=== PATIENT | male | born 1980 | race Hispanic/Latino ===

== ENCOUNTER 2017-08-25 15:39 | Inpatient (IN) | payer MEDICARE, OTHER ==
[~2017-08-25] VITALS: Ht 167.6 cm; Wt 65.1 kg
[2017-08-25] MEDS ORDERED: SODIUM CHLORIDE 0.9% 1000ML 1,000 ML IV ONE (16:32)
[2017-08-25 16:38] LABS: BASOPHILS % (AUTO) 1.2 % (0.0-5.0); EOSINOPHILS % (AUTO) 1.9 % (0.0-8.0); LYMPHOCYTES % (AUTO) 22.8 % (21.0-51.0); MEAN CORPUSCULAR HEMOGLOBIN 32.1 pg (27.0-33.0); MEAN CORPUSCULAR HGB CONC 34.8 g/dL (32.0-36.0); MEAN CORPUSCULAR VOLUME 92.4 fL (79-99); MONOCYTES % (AUTO) 11.4 % (3.0-13.0); NEUTROPHILS % (AUTO) 62.7 % (40.0-77.0); NUCLEATED RED BLOOD CELLS 0.1 % (0.0-0.19); PLATELET COUNT (AUTO) 241 K/uL (130-400); RED CELL DISTRIBUTION WIDTH 13.2 % (11.0-15.5)
[2017-08-25 16:57] LABS: CREATININE 0.8 mg/dL (0.5-1.5); POTASSIUM 3.7 mmol/L (3.5-5.1)
[2017-08-25 17:02] LABS: ALBUMIN 1.7 g/dL (3.5-5.0); BILIRUBIN,TOTAL 0.6 mg/dL (0.2-1.0); TOTAL PROTEIN, SERUM 8.8 g/dL (6.0-8.3)
[2017-08-25] MEDS ORDERED: IPRATROPIUM/ALBUTEROL SULFATE 3 ML SOLUTION IH ONE ×2 (17:40→21:48)
[2017-08-25 18:01] LABS: ABG BASE EXCESS -1.6 mmol/L (-2.0-3.0); ABG HCO3 22.2 mmol/L (21.0-28.0); ABG OXYGEN SATURATION 93.6 % (95.0-99.0); ABG PCO2 35 mmHg (35-48)
[2017-08-25] MEDS ORDERED: PREDNISONE 20 MG TABLET ONE (19:12)
[2017-08-25] MEDS ORDERED: SULFAMETHOX-TMP DS 800/160 TAB ONE (19:12)
[2017-08-25] MEDS ORDERED: CEFTRIAXONE SODIUM 1 GM ONE (19:55)
[2017-08-25] MEDS ORDERED: AZITHROMYCIN 250 MG TABLET PO ONE (19:56)
[2017-08-26] MEDS ORDERED: IPRATROPIUM/ALBUTEROL SULFATE 3 ML SOLUTION IH ONE (05:49)
[2017-08-26 06:02] LABS: HEMATOCRIT 34.2 % (42-54); LYMPHOCYTES % (AUTO) 29.9 % (21.0-51.0); MEAN CORPUSCULAR HEMOGLOBIN 31.9 pg (27.0-33.0); MEAN CORPUSCULAR HGB CONC 34.6 g/dL (32.0-36.0); MEAN CORPUSCULAR VOLUME 92.3 fL (79-99); MONOCYTES % (AUTO) 13.4 % (3.0-13.0); NEUTROPHILS % (AUTO) 55.7 % (40.0-77.0); PLATELET COUNT (AUTO) 205 K/uL (130-400); RED BLOOD CELL COUNT(AUTO) 3.71 MIL/uL (4.50-6.20); RED CELL DISTRIBUTION WIDTH 13.1 % (11.0-15.5)
[2017-08-26 06:18] LABS: INR 1.01 (0.85-1.15); PARTIAL THROMBOPLASTIN TIME 27.6 SEC (26.3-35.5); PROTHROMBIN TIME 10.6 SEC (9.6-11.6)
[2017-08-26 06:24] LABS: CREATININE 0.5 mg/dL (0.5-1.5); POTASSIUM 3.9 mmol/L (3.5-5.1)
[2017-08-26 06:31] LABS: ALBUMIN 1.5 g/dL (3.5-5.0); BILIRUBIN,TOTAL 0.3 mg/dL (0.2-1.0)
[2017-08-26] MEDS ORDERED: METHYLPREDNISOLONE SOD SUCC 40MG/ML 1ML ONE (08:16)
[2017-08-26] MEDS: METHYLPREDNISOLONE SOD SUCC 40MG/ML 1ML IVP SCH ×2 (09:45→22:44)
[2017-08-26] MEDS ORDERED: COMPOUND IV MISC 1 EACH IVSOLN MISC PRN (09:45)
[2017-08-26] MEDS ORDERED: WATER IV SCH (10:00)
[2017-08-26] MEDS ORDERED: DEXTROSE 5% IV SCH (10:00)
[2017-08-26] MEDS ORDERED: BACTRIM IV SCH (10:00)
[2017-08-26] MEDS: IPRATROPIUM/ALBUTEROL SULFATE 3 ML SOLUTION IH SCH ×2 (13:32→21:40)
[2017-08-26 13:40] VITALS: BP 107/62
[2017-08-26 16:58] VITALS: BP 97/55
[2017-08-26] MEDS: SODIUM CHLORIDE 0.9% IV SCH (18:26)
[2017-08-26] MEDS: BACTRIM IV SCH (18:26)
[2017-08-26 20:00] VITALS: BP 100/65
[2017-08-26] MEDS: FLU VACC QS2017-18 36MOS UP/PF 60 MCG/0.5 ML ML IM SCH (20:45)
[2017-08-26 23:25] VITALS: BP 100/60
[2017-08-27 03:15] VITALS: BP 101/60
[2017-08-27] MEDS: SODIUM CHLORIDE 0.9% IV SCH ×3 (03:25→19:01)
[2017-08-27] MEDS: BACTRIM IV SCH ×3 (03:25→19:01)
[2017-08-27 04:10] LABS: HEMATOCRIT 32.6 % (42-54); MEAN CORPUSCULAR HEMOGLOBIN 32.3 pg (27.0-33.0); MEAN CORPUSCULAR HGB CONC 35.1 g/dL (32.0-36.0); MEAN CORPUSCULAR VOLUME 92.2 fL (79-99); PLATELET COUNT (AUTO) 221 K/uL (130-400); RED BLOOD CELL COUNT(AUTO) 3.54 MIL/uL (4.50-6.20); WHITE BLOOD COUNT (AUTO) 8.5 K/uL (4.8-10.8)
[2017-08-27 04:24] LABS: ALBUMIN 1.5 g/dL (3.5-5.0); BILIRUBIN,TOTAL 0.3 mg/dL (0.2-1.0); CREATININE 0.7 mg/dL (0.5-1.5); MAGNESIUM 1.9 mg/dL (1.80-2.40); POTASSIUM 3.8 mmol/L (3.5-5.1); TOTAL PROTEIN, SERUM 7.5 g/dL (6.0-8.3)
[2017-08-27] MEDS: IPRATROPIUM/ALBUTEROL SULFATE 3 ML SOLUTION IH SCH ×4 (05:53→23:00)
[2017-08-27 07:53] VITALS: BP 81/42
[2017-08-27 09:15] LABS: RAPID PLASMA REAGIN WEAK REACTV (NONREACTIVE); RAPID PLASMA REAGIN TITER REACTIVE 1:1 (NONREACTIVE)
[2017-08-27] MEDS: METHYLPREDNISOLONE SOD SUCC 40MG/ML 1ML IVP SCH ×2 (10:32→21:53)
[2017-08-27 11:20] VITALS: BP 105/65
[2017-08-27] MEDS ORDERED: PHARMACY COMMUNICATION MISC SCH (13:15)
[2017-08-27] MEDS ORDERED: AZITHROMYCIN 200 MG/ 5 ML BTL PO SCH (13:30)
[2017-08-27 15:59] VITALS: BP 105/63
[2017-08-27 19:15] VITALS: BP 107/58
[2017-08-27 23:10] VITALS: BP 113/74
[2017-08-28] MEDS: BACTRIM IV SCH ×3 (02:05→20:38)
[2017-08-28] MEDS: SODIUM CHLORIDE 0.9% IV SCH ×3 (02:05→20:38)
[2017-08-28 03:10] VITALS: BP 108/62
[2017-08-28] MEDS: IPRATROPIUM/ALBUTEROL SULFATE 3 ML SOLUTION IH SCH ×3 (06:27→21:28)
[2017-08-28 08:57] VITALS: BP 101/61
[2017-08-28] MEDS: METHYLPREDNISOLONE SOD SUCC 40MG/ML 1ML IVP SCH ×2 (09:56→22:16)
[2017-08-28 11:39] VITALS: BP 134/81
[2017-08-28 16:11] VITALS: BP 107/69
[2017-08-28 19:00] VITALS: BP 108/58
[2017-08-28 23:00] VITALS: BP 104/70
[2017-08-29] MEDS: BACTRIM IV SCH ×3 (02:52→20:32)
[2017-08-29] MEDS: SODIUM CHLORIDE 0.9% IV SCH ×3 (02:52→20:32)
[2017-08-29 03:00] VITALS: BP 109/69
[2017-08-29 06:32] LABS: HEMATOCRIT 32.8 % (42-54); MEAN CORPUSCULAR HEMOGLOBIN 32.1 pg (27.0-33.0); MEAN CORPUSCULAR HGB CONC 34.6 g/dL (32.0-36.0); MEAN CORPUSCULAR VOLUME 92.8 fL (79-99); NUCLEATED RED BLOOD CELLS 0.1 % (0.0-0.19); PLATELET COUNT (AUTO) 239 K/uL (130-400); RED BLOOD CELL COUNT(AUTO) 3.53 MIL/uL (4.50-6.20); RED CELL DISTRIBUTION WIDTH 13.2 % (11.0-15.5); WHITE BLOOD COUNT (AUTO) 5.1 K/uL (4.8-10.8)
[2017-08-29 06:44] LABS: CREATININE 0.6 mg/dL (0.5-1.5); POTASSIUM 4.5 mmol/L (3.5-5.1)
[2017-08-29] MEDS: IPRATROPIUM/ALBUTEROL SULFATE 3 ML SOLUTION IH SCH ×3 (06:45→21:45)
[2017-08-29 07:00] VITALS: BP 99/61
[2017-08-29 07:24] LABS: LYMPHOCYTES % (MANUAL) 6 % (22-44); MAN.DIFF COMMENT-IMPRESSION MANUAL DIFFERENTIAL; MONOCYTES % (MANUAL) 6 % (2-9); PLATELET MORPHOLOGY COMMENT ADEQUATE; SEGMENTED NEUTROPHILS % 88 % (40-70)
[2017-08-29] MEDS: METHYLPREDNISOLONE SOD SUCC 40MG/ML 1ML IVP SCH ×2 (09:30→20:30)
[2017-08-29 11:00] VITALS: BP 106/68
[2017-08-29] MEDS: FLU VACC QS2017-18 36MOS UP/PF 60 MCG/0.5 ML ML IM SCH (12:08)
[2017-08-29 15:40] VITALS: BP 93/59
[2017-08-29 19:00] VITALS: BP 102/73
[2017-08-29 23:00] VITALS: BP 105/67
[2017-08-30] MEDS: BACTRIM IV SCH ×3 (00:25→23:07)
[2017-08-30] MEDS: SODIUM CHLORIDE 0.9% IV SCH ×3 (00:25→23:07)
[2017-08-30 03:00] VITALS: BP 90/57
[2017-08-30] MEDS: IPRATROPIUM/ALBUTEROL SULFATE 3 ML SOLUTION IH SCH ×3 (07:21→21:28)
[2017-08-30 08:00] VITALS: BP 107/61
[2017-08-30] MEDS: METHYLPREDNISOLONE SOD SUCC 40MG/ML 1ML IVP SCH ×2 (08:42→23:08)
[2017-08-30 12:19] VITALS: BP 103/64
[2017-08-30 16:00] VITALS: BP 108/64
[2017-08-30 19:59] VITALS: BP 122/74
[2017-08-30 23:39] VITALS: BP 109/68
[2017-08-31 04:21] VITALS: BP 107/65
[2017-08-31 04:41] LABS: CREATININE 0.6 mg/dL (0.5-1.5); POTASSIUM 3.7 mmol/L (3.5-5.1)
[2017-08-31 04:47] LABS: HEMATOCRIT 32.1 % (42-54); MEAN CORPUSCULAR HEMOGLOBIN 32.9 pg (27.0-33.0); MEAN CORPUSCULAR HGB CONC 35.2 g/dL (32.0-36.0); MEAN CORPUSCULAR VOLUME 93.2 fL (79-99); PLATELET COUNT (AUTO) 323 K/uL (130-400); RED BLOOD CELL COUNT(AUTO) 3.44 MIL/uL (4.50-6.20); RED CELL DISTRIBUTION WIDTH 13.3 % (11.0-15.5); WHITE BLOOD COUNT (AUTO) 6.7 K/uL (4.8-10.8)
[2017-08-31 05:20] LABS: BAND NEUTROPHILS % (MANUAL) 13 % (0-2); LYMPHOCYTES % (MANUAL) 12 % (22-44); MAN.DIFF COMMENT-IMPRESSION MANUAL DIFFERENTIAL; MONOCYTES % (MANUAL) 7 % (2-9); PLATELET MORPHOLOGY COMMENT ADEQUATE; SEGMENTED NEUTROPHILS % 68 % (40-70)
[2017-08-31] MEDS: IPRATROPIUM/ALBUTEROL SULFATE 3 ML SOLUTION IH SCH ×3 (07:28→22:07)
[2017-08-31 08:00] VITALS: BP 118/76
[2017-08-31] MEDS ORDERED: BACTRIM IV SCH (08:15)
[2017-08-31] MEDS ORDERED: WATER IV SCH (08:15)
[2017-08-31] MEDS ORDERED: DEXTROSE 5% IV SCH (08:15)
[2017-08-31 11:42] VITALS: BP 104/72
[2017-08-31] MEDS: METHYLPREDNISOLONE SOD SUCC 40MG/ML 1ML IVP SCH ×2 (11:56→22:53)
[2017-08-31] MEDS: BACTRIM IV SCH ×2 (14:05→22:54)
[2017-08-31] MEDS: WATER IV SCH ×2 (14:05→22:54)
[2017-08-31] MEDS: DEXTROSE 5% IV SCH ×2 (14:05→22:54)
[2017-08-31 16:00] VITALS: BP 124/75
[2017-08-31 19:15] VITALS: BP 105/75
[2017-08-31 23:30] VITALS: BP 112/76
[2017-09-01 03:30] VITALS: BP 119/78
[2017-09-01 07:00] VITALS: BP 120/73
[2017-09-01] MEDS: IPRATROPIUM/ALBUTEROL SULFATE 3 ML SOLUTION IH SCH ×3 (07:06→21:47)
[2017-09-01] MEDS: WATER IV SCH ×3 (07:07→22:34)
[2017-09-01] MEDS: DEXTROSE 5% IV SCH ×3 (07:07→22:34)
[2017-09-01] MEDS: BACTRIM IV SCH ×3 (07:07→22:34)
[2017-09-01] MEDS: METHYLPREDNISOLONE SOD SUCC 40MG/ML 1ML IVP SCH ×2 (09:32→22:34)
[2017-09-01 11:07] VITALS: BP 120/75
[2017-09-01 15:00] VITALS: BP 119/75
[2017-09-01 19:23] VITALS: BP 126/89
[2017-09-01 23:25] VITALS: BP 124/78
[2017-09-02 03:20] VITALS: BP 107/60
[2017-09-02 05:01] LABS: HEMATOCRIT 33.6 % (42-54); MEAN CORPUSCULAR HEMOGLOBIN 31.1 pg (27.0-33.0); MEAN CORPUSCULAR HGB CONC 33.6 g/dL (32.0-36.0); MEAN CORPUSCULAR VOLUME 92.7 fL (79-99); NUCLEATED RED BLOOD CELLS 0.1 % (0.0-0.19); PLATELET COUNT (AUTO) 302 K/uL (130-400); RED BLOOD CELL COUNT(AUTO) 3.63 MIL/uL (4.50-6.20); WHITE BLOOD COUNT (AUTO) 8.2 K/uL (4.8-10.8)
[2017-09-02 05:16] LABS: ALBUMIN 1.9 g/dL (3.5-5.0); BILIRUBIN,TOTAL 0.3 mg/dL (0.2-1.0); CREATININE 0.7 mg/dL (0.5-1.5); MAGNESIUM 1.5 mg/dL (1.80-2.40); POTASSIUM 4.1 mmol/L (3.5-5.1); TOTAL PROTEIN, SERUM 7.3 g/dL (6.0-8.3)
[2017-09-02] MEDS: IPRATROPIUM/ALBUTEROL SULFATE 3 ML SOLUTION IH SCH ×2 (06:29→13:25)
[2017-09-02 08:00] VITALS: BP 123/76
[2017-09-02] MEDS: METHYLPREDNISOLONE SOD SUCC 40MG/ML 1ML IVP SCH (10:09)
[2017-09-02] MEDS: DEXTROSE 5% IV SCH ×2 (10:09→18:28)
[2017-09-02] MEDS: BACTRIM IV SCH ×2 (10:09→18:28)
[2017-09-02] MEDS: WATER IV SCH ×2 (10:09→18:28)
[2017-09-02] MEDS: ACETAMINOPHEN 325 MG TAB PO PRN ×2 (11:47→19:23)
[2017-09-02 12:00] VITALS: BP 126/73
[2017-09-02 16:00] VITALS: BP 115/70
== END 2017-09-02 20:35 | DRG 974 ==
LOC: EDH 15:39 → EDHIP 19:13 → 3CH 08-26 13:50
PROVIDERS: ADMIT Internal Medicine Infectious Disease; ATTEND Internal Medicine Infectious Disease
DX: B20 Human immunodeficiency virus [HIV] disease (principal); B59 Pneumocystosis; J96.01 Acute respiratory failure with hypoxia; E46 Unspecified protein-calorie malnutrition; L40.9 Psoriasis, unspecified; Z91.19 Patient's noncompliance with other medical treatment and regimen; Z68.23 Body mass index [BMI] 23.0-23.9, adult; Z88.0 Allergy status to penicillin
CPT/HCPCS: 36415; 36600; 71010; 71046; 71250; 80048; 80053; 82803; 83735; 85025; 85027; 85610; 85730; 86360; 86480; 86592; 86780; 86812; 87040; 87071; 87116; 87206; 87536; 87633; 87900; 87901; 93005; 94640; 94664; 99291; A4218; J0696; J2920; J3490; J7030; J7040; J7060

== ENCOUNTER 2017-09-20 17:14 | Inpatient (IN) | payer OTHER ==
[~2017-09-20] VITALS: Ht 167.6 cm; Wt 64.3 kg
[2017-09-20 18:06] LABS: CREATININE 0.5 mg/dL (0.5-1.5); POTASSIUM 3.5 mmol/L (3.5-5.1)
[2017-09-20 18:10] LABS: INR 1.05 (0.85-1.15); PARTIAL THROMBOPLASTIN TIME 31.5 SEC (26.3-35.5)
[2017-09-20 18:11] LABS: HEMATOCRIT 28.5 % (42-54); MEAN CORPUSCULAR HEMOGLOBIN 31.7 pg (27.0-33.0); MEAN CORPUSCULAR HGB CONC 33.9 g/dL (32.0-36.0); MEAN CORPUSCULAR VOLUME 93.6 fL (79-99); NUCLEATED RED BLOOD CELLS 0.1 % (0.0-0.19); PLATELET COUNT (AUTO) 353 K/uL (130-400); RED BLOOD CELL COUNT(AUTO) 3.05 MIL/uL (4.50-6.20); RED CELL DISTRIBUTION WIDTH 14.5 % (11.0-15.5); WHITE BLOOD COUNT (AUTO) 3.4 K/uL (4.8-10.8)
[2017-09-20 18:19] LABS: ALBUMIN 1.6 g/dL (3.5-5.0); BILIRUBIN,TOTAL 10.9 mg/dL (0.2-1.0); TOTAL PROTEIN, SERUM 7.2 g/dL (6.0-8.3)
[2017-09-20 20:20] LABS: BASOPHILS % (MANUAL) 1 % (0-2); EOSINOPHILS % (MANUAL) 2 % (1-6); LYMPHOCYTES % (MANUAL) 10 % (22-44); MAN.DIFF COMMENT-IMPRESSION MANUAL DIFFERENTIAL; MONOCYTES % (MANUAL) 8 % (2-9); PLATELET MORPHOLOGY COMMENT ADEQUATE; REACTIVE LYMPHOCYTES 10 % (0-0); SEGMENTED NEUTROPHILS % 69 % (40-70)
[2017-09-20] MEDS ORDERED: POTASSIUM CHLORIDE 20MEQ/100ML 100 ML IV PRN (23:00)
[2017-09-20] MEDS ORDERED: HYDRALAZINE HCL 20 MG/ML VIAL IV PRN (23:00)
[2017-09-20] MEDS ORDERED: POTASSIUM CHLORIDE 10% ELIXIR 20 MEQ/15 ML UDCUP PO PRN (23:00)
[2017-09-20] MEDS ORDERED: ONDANSETRON HCL 4 MG/2 ML VIAL IV PRN (23:00)
[2017-09-20] MEDS ORDERED: LIDOCAINE HCL-MPF 1% 2ML VIAL IVP PRN (23:00)
[2017-09-20] MEDS ORDERED: SODIUM CHLORIDE 0.9% 1000ML 1,000 ML IV ONE (23:59)
[2017-09-21] VITALS (7 sets, daily range): BP systolic 99–111; BP diastolic 56–69
[2017-09-21 03:14] LABS: APPEARANCE,URINE Clear (CLEAR); BILIRUBIN,URINE Large (NEGATIVE); GLUCOSE, URINE (UA) Negative (NEGATIVE); KETONES,URINE Negative (NEGATIVE); LEUKOCYTE ESTERASE ,URINE Small (NEGATIVE); NITRATE,URINE Positive (NEGATIVE); OCCULT BLOOD,URINE Negative (NEGATIVE); PROTEIN,URINE POS 1+ (NEGATIVE)
[2017-09-21 03:19] LABS: COLOR,URINE AMBER (YELLOW)
[2017-09-21] MEDS: SODIUM CHLORIDE 0.9% 1000ML 1,000 ML IV SCH ×2 (03:30→21:17)
[2017-09-21 03:36] LABS: BACTERIA,URINE None Seen /HPF (None Seen); MUCUS,URINE Rare LPF (None Seen); RBC,URINE None Seen /HPF (0-1); SQUAMOUS EPITHELIAL CELL,UR Rare /LPF (0-2); WBC,URINE None Seen /HPF (0-1)
[2017-09-21 04:08] LABS: HEMATOCRIT 27.5 % (42-54); MEAN CORPUSCULAR HEMOGLOBIN 32.1 pg (27.0-33.0); MEAN CORPUSCULAR HGB CONC 34.3 g/dL (32.0-36.0); MEAN CORPUSCULAR VOLUME 93.8 fL (79-99); PLATELET COUNT (AUTO) 329 K/uL (130-400); RED BLOOD CELL COUNT(AUTO) 2.93 MIL/uL (4.50-6.20); RED CELL DISTRIBUTION WIDTH 14.5 % (11.0-15.5); WHITE BLOOD COUNT (AUTO) 4.3 K/uL (4.8-10.8)
[2017-09-21 04:21] LABS: INR 1.02 (0.85-1.15); PROTHROMBIN TIME 10.7 SEC (9.6-11.6)
[2017-09-21 04:43] LABS: ALBUMIN 1.6 g/dL (3.5-5.0); BILIRUBIN,TOTAL 10.6 mg/dL (0.2-1.0); CREATININE 0.6 mg/dL (0.5-1.5); TOTAL PROTEIN, SERUM 6.9 g/dL (6.0-8.3)
[2017-09-21 04:49] LABS: POTASSIUM 2.9 mmol/L (3.5-5.1)
[2017-09-21] MEDS: POTASSIUM CHLORIDE 20 MEQ ERTAB PO PRN ×4 (06:05→21:22)
[2017-09-21] MEDS ORDERED: LACTULOSE 20 GM/30 ML UDCUP PO PRN (09:00)
[2017-09-21] MEDS ORDERED: ONDANSETRON HCL 4 MG/2 ML VIAL IV PRN (09:00)
[2017-09-21] MEDS ORDERED: HYDRALAZINE HCL 20 MG/ML VIAL IV PRN (09:00)
[2017-09-21] MEDS ORDERED: PANTOPRAZOLE 40 MG/VIAL IVP SCH (09:00)
[2017-09-21] MEDS: TRIAMCINOLONE ACETONIDE 0.1% CREAM 15GM TP SCH (21:17)
[2017-09-22] VITALS (13 sets, daily range): BP systolic 103–133; BP diastolic 58–92
[2017-09-22 04:11] LABS: MEAN CORPUSCULAR HEMOGLOBIN 33.2 pg (27.0-33.0); MEAN CORPUSCULAR HGB CONC 35.5 g/dL (32.0-36.0); MEAN CORPUSCULAR VOLUME 93.7 fL (79-99); NUCLEATED RED BLOOD CELLS 0.1 % (0.0-0.19); PLATELET COUNT (AUTO) 298 K/uL (130-400); RED BLOOD CELL COUNT(AUTO) 2.67 MIL/uL (4.50-6.20); RED CELL DISTRIBUTION WIDTH 14.3 % (11.0-15.5); WHITE BLOOD COUNT (AUTO) 3.6 K/uL (4.8-10.8)
[2017-09-22 04:43] LABS: ALBUMIN 1.4 g/dL (3.5-5.0); BILIRUBIN,TOTAL 8.9 mg/dL (0.2-1.0); CREATININE 0.6 mg/dL (0.5-1.5); HIGH SENSITIVITY CRP 25.33 mg/L (0.0-3.0); MAGNESIUM 1.7 mg/dL (1.80-2.40); PHOSPHORUS 2.3 mg/dL (2.5-4.9); POTASSIUM 3.5 mmol/L (3.5-5.1); TOTAL PROTEIN, SERUM 6.3 g/dL (6.0-8.3)
[2017-09-22 04:48] LABS: LYMPHOCYTES % (MANUAL) 20 % (22-44); MAN.DIFF COMMENT-IMPRESSION MANUAL DIFFERENTIAL; MONOCYTES % (MANUAL) 24 % (2-9); PLATELET MORPHOLOGY COMMENT ADEQUATE; SEGMENTED NEUTROPHILS % 56 % (40-70)
[2017-09-22] MEDS: PANTOPRAZOLE SODIUM 40 MG TABLET.DR PO SCH ×2 (05:42→09:48)
[2017-09-22] MEDS: SODIUM CHLORIDE 0.9% 1000ML 1,000 ML IV SCH ×2 (05:51→14:49)
[2017-09-22] MEDS: TRIAMCINOLONE ACETONIDE 0.1% CREAM 15GM TP SCH ×2 (09:00→21:00)
[2017-09-22] MEDS ORDERED: GADOBENATE DIMEGLUMINE 20 ML IV ONE (09:39)
[2017-09-22 12:18] LABS: HEPATITIS A ANTIBODY IGM Negative (Negative); HEPATITIS B CORE IGM Negative (Negative); HEPATITIS Bs ANTIGEN SCREEN P Negative (Negative)
[2017-09-22] MEDS: POTASSIUM CHLORIDE 20 MEQ ERTAB PO PRN ×3 (15:11→21:42)
[2017-09-23] VITALS (7 sets, daily range): BP systolic 93–119; BP diastolic 54–70
[2017-09-23] MEDS: SODIUM CHLORIDE 0.9% 1000ML 1,000 ML IV SCH (03:31)
[2017-09-23 03:42] LABS: HEMATOCRIT 24.7 % (42-54); MEAN CORPUSCULAR HEMOGLOBIN 32.3 pg (27.0-33.0); MEAN CORPUSCULAR HGB CONC 34.5 g/dL (32.0-36.0); MEAN CORPUSCULAR VOLUME 93.7 fL (79-99); PLATELET COUNT (AUTO) 313 K/uL (130-400); RED BLOOD CELL COUNT(AUTO) 2.63 MIL/uL (4.50-6.20); RED CELL DISTRIBUTION WIDTH 14.7 % (11.0-15.5)
[2017-09-23 04:41] LABS: ALBUMIN 1.5 g/dL (3.5-5.0); BILIRUBIN,TOTAL 8.4 mg/dL (0.2-1.0); CREATININE 0.5 mg/dL (0.5-1.5); HIGH SENSITIVITY CRP 28.05 mg/L (0.0-3.0); TOTAL PROTEIN, SERUM 6.6 g/dL (6.0-8.3)
[2017-09-23 06:11] LABS: BAND NEUTROPHILS % (MANUAL) 4 % (0-2); BASOPHILS % (MANUAL) 4 % (0-2); EOSINOPHILS % (MANUAL) 6 % (1-6); LYMPHOCYTES % (MANUAL) 4 % (22-44); MAN.DIFF COMMENT-IMPRESSION MANUAL DIFFERENTIAL; METAMYELOCYTES % 2 % (0-0); MONOCYTES % (MANUAL) 10 % (2-9); REACTIVE LYMPHOCYTES 2 % (0-0); SEGMENTED NEUTROPHILS % 68 % (40-70)
[2017-09-23 06:12] LABS: PLATELET MORPHOLOGY COMMENT ADEQUATE
[2017-09-23] MEDS ORDERED: MAGNESIUM 2GM PREMIX 50ML 50 ML IV PRN (08:00)
[2017-09-23] MEDS: HYDROCORTISONE 25 MG SUPPOSITORY PR SCH ×2 (10:01→22:01)
[2017-09-23] MEDS: TRIAMCINOLONE ACETONIDE 0.1% CREAM 15GM TP SCH ×2 (10:02→22:02)
[2017-09-24 03:00] VITALS: BP 104/62
[2017-09-24 03:48] LABS: HEMATOCRIT 25.1 % (42-54); MEAN CORPUSCULAR HEMOGLOBIN 34.2 pg (27.0-33.0); MEAN CORPUSCULAR HGB CONC 36.7 g/dL (32.0-36.0); MEAN CORPUSCULAR VOLUME 93.1 fL (79-99); PLATELET COUNT (AUTO) 341 K/uL (130-400); RED CELL DISTRIBUTION WIDTH 14.4 % (11.0-15.5); WHITE BLOOD COUNT (AUTO) 4.4 K/uL (4.8-10.8)
[2017-09-24 03:53] LABS: BASOPHILS % (MANUAL) 1 % (0-2); EOSINOPHILS % (MANUAL) 3 % (1-6); LYMPHOCYTES % (MANUAL) 12 % (22-44); MAN.DIFF COMMENT-IMPRESSION MANUAL DIFFERENTIAL; MONOCYTES % (MANUAL) 19 % (2-9); PLATELET MORPHOLOGY COMMENT ADEQUATE; SEGMENTED NEUTROPHILS % 65 % (40-70)
[2017-09-24 04:05] LABS: ALBUMIN 1.6 g/dL (3.5-5.0); BILIRUBIN,TOTAL 7.5 mg/dL (0.2-1.0); CREATININE 0.7 mg/dL (0.5-1.5); PHOSPHORUS 3.4 mg/dL (2.5-4.9); POTASSIUM 3.7 mmol/L (3.5-5.1); TOTAL PROTEIN, SERUM 6.9 g/dL (6.0-8.3)
[2017-09-24] MEDS: PANTOPRAZOLE SODIUM 40 MG TABLET.DR PO SCH (06:32)
[2017-09-24 07:00] VITALS: BP 105/61
[2017-09-24] MEDS: TRIAMCINOLONE ACETONIDE 0.1% CREAM 15GM TP SCH ×2 (09:16→20:48)
[2017-09-24] MEDS: HYDROCORTISONE 25 MG SUPPOSITORY PR SCH ×2 (09:16→20:48)
[2017-09-24 11:06] VITALS: BP 92/67
[2017-09-24 15:00] VITALS: BP 117/64
[2017-09-24] MEDS: POTASSIUM CHLORIDE 20 MEQ ERTAB PO PRN (16:46)
[2017-09-24 20:00] VITALS: BP 124/77
[2017-09-25] VITALS: BP 108/75
[2017-09-25 04:00] VITALS: BP 108/62
[2017-09-25 06:28] LABS: MAGNESIUM 1.9 mg/dL (1.80-2.40)
[2017-09-25] MEDS: PANTOPRAZOLE SODIUM 40 MG TABLET.DR PO SCH (06:32)
[2017-09-25 07:30] VITALS: BP 90/53
[2017-09-25] MEDS: HYDROCORTISONE 25 MG SUPPOSITORY PR SCH ×2 (09:36→20:27)
[2017-09-25] MEDS: TRIAMCINOLONE ACETONIDE 0.1% CREAM 15GM TP SCH ×2 (09:37→20:29)
[2017-09-25 11:00] VITALS: BP 97/55
[2017-09-25 16:00] VITALS: BP 120/60
[2017-09-25 20:00] VITALS: BP 114/76
[2017-09-26] VITALS: BP 102/58
[2017-09-26 04:00] VITALS: BP 106/66
[2017-09-26 06:46] LABS: ALBUMIN 1.6 g/dL (3.5-5.0); BILIRUBIN,TOTAL 4.2 mg/dL (0.2-1.0); CREATININE 0.6 mg/dL (0.5-1.5); MAGNESIUM 1.9 mg/dL (1.80-2.40); PHOSPHORUS 3.2 mg/dL (2.5-4.9); POTASSIUM 3.2 mmol/L (3.5-5.1); TOTAL PROTEIN, SERUM 6.9 g/dL (6.0-8.3)
[2017-09-26] MEDS ORDERED: HYDR25SU11 PR (07:48)
[2017-09-26 08:00] VITALS: BP 108/68
[2017-09-26] MEDS: TRIAMCINOLONE ACETONIDE 0.1% CREAM 15GM TP SCH (09:00)
[2017-09-26] MEDS: HYDROCORTISONE 25 MG SUPPOSITORY PR SCH (09:36)
[2017-09-26] MEDS: PANTOPRAZOLE SODIUM 40 MG TABLET.DR PO SCH (09:53)
[2017-09-26 11:00] VITALS: BP 104/62
[2017-09-26] MEDS: POTASSIUM CHLORIDE 20 MEQ ERTAB PO PRN ×2 (12:34→14:58)
[2017-09-26 16:00] VITALS: BP 109/66
[2017-12-20] MEDS ORDERED: SODIUM CHLORIDE 0.9% 1000ML 1,000 ML IV ONE (21:15)
== END 2017-09-26 18:35 | disposition home or self-care (01) | DRG 974 ==
LOC: EDH 17:14 → EDHIP 17:30 → 3BH 09-21 02:19
PROVIDERS: ADMIT Internal Medicine; ATTEND Internal Medicine
DX: B59 Pneumocystosis (principal); B20 Human immunodeficiency virus [HIV] disease; K83.1 Obstruction of bile duct; K72.90 Hepatic failure, unspecified without coma; E44.0 Moderate protein-calorie malnutrition; J18.9 Pneumonia, unspecified organism; K71.9 Toxic liver disease, unspecified; E87.1 Hypo-osmolality and hyponatremia; D64.9 Anemia, unspecified; R74.0 Nonspecific elevation of levels of transaminase and lactic acid dehydrogenase [LDH]; E87.6 Hypokalemia; J45.909 Unspecified asthma, uncomplicated; K64.9 Unspecified hemorrhoids; L40.9 Psoriasis, unspecified; Z88.0 Allergy status to penicillin; Z68.22 Body mass index [BMI] 22.0-22.9, adult; Z82.49 Family history of ischemic heart disease and other diseases of the circulatory system; Z82.5 Family history of asthma and other chronic lower respiratory diseases
CPT/HCPCS: 36415; 71045; 74176; 74183; 76700; 78227; 80053; 80074; 81001; 83735; 84100; 84132; 85025; 85027; 85610; 85730; 86141; 86308; 87040; 87088; A9537; A9577; C9113; J3475; J3480; J3490; J7030